=== PATIENT | female | born 1995 | race Two or more races ===

== ENCOUNTER 2019-04-11 07:24 | Emergency (ER) | payer SELFPAY ==
[~2019-04-11] VITALS: Ht 154.9 cm; Wt 55.8 kg
[2019-04-11 07:32] VITALS: BP 114/63
== END 2019-04-11 09:12 | disposition left against medical advice (07) ==
LOC: ER 07:24
DX: R42 Dizziness and giddiness (principal); Z53.21 Procedure and treatment not carried out due to patient leaving prior to being seen by health care provider